=== PATIENT | male | born 2000 | race Caucasian/White ===

== ENCOUNTER 2021-04-03 03:16 | Emergency (ER) | payer OTHER ==
[~2021-04-03 03:16] MED LIST: SEPTRA DS 8001 TAB PO
[2021-04-03 04:49] LABS: BASO # 0.04 (0.02-0.10); EOS # 0.15 (0.04-0.40); EOS % 1.2 % (0.0-4.0); HEMATOCRIT 55.9 % (36.0-47.0); HEMOGLOBIN 19.4 g/dL (12.5-16.1); LYMPH# 2.78 (1.50-4.00); MEAN CELL VOLUME 89 fl (78-95); MEAN CORPUSCULAR HEMOGLOBIN 31 pg (26-32); MEAN CORPUSCULAR HGB CONC 35 g/dL (33-37); MONO # 0.72 (0.20-0.80); NEU # 8.98 (1.40-6.50); PLATELET COUNT 267 K/mm3 (130-400); RED BLOOD COUNT 6.27 M/mm3 (4.20-5.60); RED CELL DISTRIBUTION WIDTH 12.4 % (11.5-14.5); WHITE BLOOD COUNT 12.7 K/mm3 (4.8-10.8)
[2021-04-03 04:59] LABS: ALBUMIN 4.1 g/dL (3.5-5.0); POTASSIUM 3.9 mmol/L (3.5-5.1); SODIUM 139 mmol/L (136-145)
[2021-04-03 05:00] LABS: CALCIUM 8.8 mg/dL (8.3-10.5)
[2021-04-03 05:01] LABS: GLUCOSE 123 mg/dL (75-110); TOTAL PROTEIN 6.8 g/dL (6.4-8.3)
[2021-04-03 05:02] LABS: CARBON DIOXIDE 21 mmol/L (22-29)
[2021-04-03 05:03] LABS: TOTAL BILIRUBIN 0.5 mg/dL (0.2-1.2)
[2021-04-03 05:07] LABS: AST-SGOT 14 U/L (5-34)
[2021-04-03 05:08] LABS: ALT/SGPT 19 U/L (0-55)
[2021-04-03 05:14] LABS: TROPONIN-I < 0.03 ng/mL (<0.030)
[2021-04-03 05:48] LABS: URINE APPEARANCE CLOUDY; URINE BILIRUBIN NEGATIVE (NEGATIVE); URINE BLOOD NEGATIVE (NEGATIVE); URINE COLOR YELLOW; URINE GLUCOSE NEGATIVE (NEGATIVE); URINE KETONE NEGATIVE (NEGATIVE); URINE LEUKOCYTE ESTERASE NEGATIVE (NEGATIVE); URINE NITRATE NEGATIVE (NEGATIVE); URINE PROTEIN(semi-quant) TRACE mg/dL (NEGATIVE); URINE UROBILINOGEN NORMAL (NORMAL); URINE WBC 0-1 /hpf (0-3)
[2021-04-03 09:29] VITALS: BP 133/64
== END 2021-04-03 09:20 | disposition home or self-care (01) ==
LOC: ED 03:16
PROVIDERS: Family Medicine
DX: L50.9 Urticaria, unspecified (principal); I95.1 Orthostatic hypotension; D75.1 Secondary polycythemia; E86.9 Volume depletion, unspecified; F17.200 Nicotine dependence, unspecified, uncomplicated
CPT/HCPCS: J7030

== ENCOUNTER → 2021-04-16 | Outpatient (CLI) | payer OTHER ==
[2021-04-16 15:29] LABS: HEMOGLOBIN 16.2 g/dL (12.5-16.1); MEAN PLATELET VOLUME 10.3 fl (7.4-10.4); RED BLOOD COUNT 5.24 M/mm3 (4.20-5.60); RED CELL DISTRIBUTION WIDTH 12.5 % (11.5-14.5); WHITE BLOOD COUNT 5.7 K/mm3 (4.8-10.8)
== END ==
LOC: LAB 14:59
PROVIDERS: Family Medicine
DX: D58.2 Other hemoglobinopathies (principal); R53.83 Other fatigue

== ENCOUNTER → 2022-04-21 | Outpatient (CLI) | payer OTHER ==
[2022-04-21 12:22] LABS: HEMATOCRIT 42.6 % (42.0-52.0); HEMOGLOBIN 14.4 g/dL (13.5-18.0); MEAN PLATELET VOLUME 10.3 fl (7.4-10.4); RED BLOOD COUNT 4.64 M/mm3 (4.20-5.60); RED CELL DISTRIBUTION WIDTH 12.7 % (11.5-14.5); WHITE BLOOD COUNT 4.4 K/mm3 (4.8-10.8)
== END ==
LOC: LAB 12:09
PROVIDERS: Family Medicine
DX: R07.89 Other chest pain (principal); R79.89 Other specified abnormal findings of blood chemistry